=== PATIENT | female | born 1945 | race Caucasian/White ===

== ENCOUNTER 2017-08-12 10:26 | Day surgery (SDC) | payer MEDICARE, OTHER ==
[~2017-08-12] VITALS: Ht 160 cm; Wt 64.0 kg
[~2017-08-12 10:26] MED LIST: /WARF25TA OR; ACET65TA OR; ALEVE PO; CARV6.25 PO; CLARINEX PO; DESL5TAB4 PO; FLON0.05; MIGRAINE PILL PO; PERC5TAB8 OR; SAVA1TAB5 PO
[2017-08-12] MEDS ORDERED: NS 1,000 ML IV ONE (11:00)
--- NOTE | 2017-08-12 11:42 | ROOR ---
Patient Name: Chana Hare Procedure Date: 08/12/2017 11:25 AM Date of : 1945 Age: 71 Room: [facility] Gender: Female Note Status: Finalized Procedure: Upper Endoscopy + Biopsies Indications: Occult blood in stool Providers: Chad Mayberry MD Referring MD: Rajan Pedroza MD Requesting Provider: Medicines: Monitored Anesthesia Care Complications: No immediate complications. Procedure: Pre-Anesthesia Assessment: - The heart rate, respiratory rate, oxygen saturations, blood pressure, adequacy of pulmonary ventilation, and response to care were monitored throughout the procedure. The Endoscope was introduced through the mouth, and advanced to the second part of duodenum. The upper GI endoscopy was accomplished without difficulty. The patient tolerated the procedure well. Findings: The Z-line was regular and was found 35 cm from the incisors. Multiple biopsies were obtained with cold forceps for evaluation to rule out Cotter's Esophagus randomly at the gastroesophageal junction. A medium-sized hiatal hernia was present. No other significant abnormalities were identified in a careful examination of the stomach. The exam of the duodenum was otherwise normal. Impression: - Z-line regular, 35 cm from the incisors. - Medium-sized hiatal hernia. - Multiple biopsies were obtained at the gastroesophageal junction. - The examination was otherwise normal. Recommendation: - Patient has a contact number available for emergencies. The signs and symptoms of potential delayed complications were discussed with the patient. Return to normal activities tomorrow. Written discharge instructions were provided to the patient. - High fiber diet. - Discharge patient to home. - Follow an antireflux regimen. - Continue present medications. - Await pathology results. - Telephone GI clinic for pathology results in 1 week. - Check Portal Online for Path Results.([email or web address]) - The findings and recommendations were discussed with the patient's family. Chad Mayberry MD Chad Mayberry MD 08/12/2017 11:41:48 AM This report has been signed electronically. Number of Addenda: 0 Note Initiated On: 08/12/2017 11:25 AM Estimated Blood Loss: Estimated blood loss: none.
[2017-08-12] MEDS ORDERED: PROPOFOL 200 MG/20 ML VIAL As Ordered ONE (11:59)
[2017-08-12] MEDS ORDERED: LIDOCAINE 2% INJ 100 MG/5 ML SDV (FOR ANES.) As Ordered ONE (11:59)
--- NOTE | 2017-08-12 12:05 | ROOR ---
Patient Name: Chana Hare Procedure Date: 08/12/2017 11:26 AM Date of : 1945 Age: 71 Room: [facility] Gender: Female Note Status: Finalized Procedure: Total Colonoscopy to Cecum + Cold Snare Polypectomy + Hemoclip Indications: Heme positive stool Providers: Chad Mayberry MD Referring MD: Rajan Pedroza MD Requesting Provider: Medicines: Monitored Anesthesia Care Complications: No immediate complications. Procedure: Pre-Anesthesia Assessment: - The heart rate, respiratory rate, oxygen saturations, blood pressure, adequacy of pulmonary ventilation, and response to care were monitored throughout the procedure. The Colonoscope was introduced through the anus and advanced to the cecum, identified by appendiceal orifice and ileocecal valve. The colonoscopy was performed without difficulty. The patient tolerated the procedure well. The quality of the bowel preparation was excellent. Findings: The perianal and digital rectal examinations were normal. Non-bleeding internal hemorrhoids were found during retroflexion. The hemorrhoids were small and Grade I (internal hemorrhoids that do not prolapse). A small polyp was found in the rectum. The polyp was sessile. The polyp was removed with a cold snare. Resection and retrieval were complete. To prevent bleeding after the polypectomy, one hemostatic clip was successfully placed (MR conditional). There was no bleeding at the end of the procedure. A diminutive polyp was found in the cecum. The polyp was sessile. The polyp was removed with a cold snare. Resection and retrieval were complete. Multiple small and large-mouthed diverticula were found in the recto-sigmoid colon, sigmoid colon and descending colon. The exam was otherwise without abnormality on direct and retroflexion views. Impression: - Non-bleeding internal hemorrhoids. - One small polyp in the rectum, removed with a cold snare. Resected and retrieved. Clip (MR conditional) was placed. - One diminutive polyp in the cecum, removed with a cold snare. Resected and retrieved. - Diverticulosis in the recto-sigmoid colon, in the sigmoid colon and in the descending colon. - The examination was otherwise normal on direct and retroflexion views. - The exam was otherwise normal to the cecum. Recommendation: - Patient has a contact number available for emergencies. The signs and symptoms of potential delayed complications were discussed with the patient. Return to normal activities tomorrow. Written discharge instructions were provided to the patient. - High fiber diet. - Discharge patient to home. - Continue present medications. - Await pathology results. - Telephone GI clinic for pathology results in 1 week. - Repeat colonoscopy for symptoms only. - The findings and recommendations were discussed with the patient's family. Chad Mayberry MD Chad Mayberry MD 08/12/2017 12:05:20 PM This report has been signed electronically. Number of Addenda: 0 Note Initiated On: 08/12/2017 11:26 AM Estimated Blood Loss: Estimated blood loss: none.
[2017-08-12 12:20] VITALS: BP 129/62
== END 2017-08-12 12:40 | disposition home or self-care (01) ==
LOC: M OPP 10:26
PROVIDERS: ATTEND Internal Medicine Gastroenterology
DX: R19.5 Other fecal abnormalities (principal); K62.1 Rectal polyp; D12.0 Benign neoplasm of cecum; K57.30 Diverticulosis of large intestine without perforation or abscess without bleeding; K64.0 First degree hemorrhoids; K44.9 Diaphragmatic hernia without obstruction or gangrene; I48.91 Unspecified atrial fibrillation; M19.90 Unspecified osteoarthritis, unspecified site; Z86.12 Personal history of poliomyelitis; Z78.0 Asymptomatic menopausal state; R06.83 Snoring; Z96.659 Presence of unspecified artificial knee joint; Z88.0 Allergy status to penicillin; Z88.2 Allergy status to sulfonamides; Z79.899 Other long term (current) drug therapy; Z80.0 Family history of malignant neoplasm of digestive organs

== ENCOUNTER → 2019-05-06 | Outpatient (REF) | payer MEDICARE, OTHER ==
[~2019-05-06] MED LIST changes: -/WARF25TA OR; +COUM1TAB18 OR; +DESL1TAB3 PO; -DESL5TAB4 PO
[2019-05-06 11:55] LABS: BASO # 0.1 10^3/uL (0.0-0.2); BASO % 1.4 % (0.0-1.0); EOS # 0.2 10^3/uL (0.0-0.50); EOS % 5.1 % (0.0-3.0); HEMATOCRIT 37.1 % (36.0-47.0); HEMOGLOBIN 12.5 g/dl (12.0-15.5); MEAN CORPUSCULAR HEMOGLOBIN 31.6 pg (27.0-33.0); MEAN CORPUSCULAR HGB CONC 33.7 g/dl (32.0-36.5); MEAN CORPUSCULAR VOLUME 93.9 fl (80.0-96.0); MONO # 0.4 10^3/uL (0.0-0.8); MONO % 12.6 % (0.0-5.0); NEUTROPHILS # 1.9 10^3/uL (1.8-7.7); NEUTROPHILS % 52.9 % (36.0-66.0); PLATELET COUNT, AUTOMATED 227 10^3/uL (150-450); RED BLOOD COUNT 3.95 10^6/uL (4.00-5.40); WHITE BLOOD COUNT 3.5 10^3/uL (4.0-10.0)
[2019-05-06 12:26] LABS: ERYTHROCYTE SEDIMENTATION RATE 37 mm/hr (0-30)
[2019-05-06 12:33] LABS: ALBUMIN 3.6 GM/DL (3.2-5.2); ALT/SGPT 24 U/L (12-78); BILIRUBIN,TOTAL 0.6 MG/DL (0.2-1.0); BLOOD UREA NITROGEN 17 MG/DL (7-18); CARBON DIOXIDE LEVEL 32 MEQ/L (21-32); CHLORIDE LEVEL 105 MEQ/L (98-107); CREATININE FOR GFR 0.98 MG/DL (0.55-1.30); GLOMERULAR FILTRATION RATE 58.9 (>39); GLUCOSE, FASTING 92 MG/DL (70-100); POTASSIUM SERUM 4.4 MEQ/L (3.5-5.1); RHEUMATOID FACTOR QUANT < 10.0 IU/ML (<15.0); SODIUM LEVEL 141 MEQ/L (136-145); TOTAL PROTEIN 6.6 GM/DL (6.4-8.2)
[2019-05-06 12:34] LABS: TOTAL 25(OH) VITAMIN D 38.8 NG/ML (30.0-100.0)
[2019-05-07 15:17] LABS: ANTINUCLEAR ANTIBODIES DIRECT Negative (Negative)
== END ==
LOC: M LABDRAW1 09:48
PROVIDERS: ATTEND Psychiatry & Neurology Neurology
DX: R51 Headache (principal); E07.9 Disorder of thyroid, unspecified

== ENCOUNTER → 2020-07-19 | Outpatient (CLI) | payer MEDICARE, OTHER ==
[~2020-07-19] MED LIST changes: -SAVA1TAB5 PO; +SAVA1TAB6 PO
== END ==
LOC: M LABSMTC 11:02
PROVIDERS: ATTEND Family Medicine
DX: Z11.59 Encounter for screening for other viral diseases (principal)
CPT/HCPCS: C9803; U0003

== ENCOUNTER → 2020-08-30 | Outpatient (CLI) | payer SELFPAY | LOC: M LABSMTC 10:48 | PROVIDERS: ATTEND Pediatrics | DX: Z20.828 Contact with and (suspected) exposure to other viral communicable diseases (principal) ==

== ENCOUNTER → 2020-09-11 | Outpatient (CLI) | payer SELFPAY | LOC: M LABSMTC 11:30 | PROVIDERS: ATTEND Pediatrics | DX: Z20.828 Contact with and (suspected) exposure to other viral communicable diseases (principal) ==

== ENCOUNTER 2021-07-18 17:08 | Emergency (ER) | payer MEDICARE, OTHER ==
[~2021-07-18] VITALS: Ht 157.5 cm; Wt 67.2 kg
--- OUTSIDE RECORDS SUMMARY | 2021-07-18 17:19 | CCD ---
Author Author [facility] Organization [facility] Address Unknown Phone Unavailable Care Team Providers Care Member Of Technical Staff Name Role Phone Adryan, L Niurka PA Unavailable Unavailable Adryan, L Niurka PA Unavailable Unavailable Adryan, L Niurka PA Unavailable Unavailable Adryan, L Niurka PA Unavailable Unavailable Adryan, L Niurka PA Unavailable Unavailable Adryan, L Niurka PA Unavailable Unavailable Adryan, L Niurka PA Unavailable Unavailable Adryan, L Niurka PA Unavailable Unavailable Adryan, L Niurka PA Unavailable Unavailable Adryan, L Niurka PA Unavailable Unavailable Adryan, L Niurka PA Unavailable Unavailable Adryan, L Niurka PA Unavailable Unavailable Adryan, L Niurka PA Unavailable Unavailable Adryan, L Niurka PA Unavailable Unavailable Adryan, L Niurka PA Unavailable Unavailable Adryan, L Niurka PA Unavailable Unavailable Adryan, L Niurka PA Unavailable Unavailable Adryan, L Niurka PA Unavailable Unavailable Adryan, L Niurka PA Unavailable Unavailable Adryan, L Niurka PA Unavailable Unavailable Adryan, L Niurka PA Unavailable Unavailable Adryan, L Niurka PA Unavailable Unavailable Adryan, L Niurka PA Unavailable Unavailable Clark, A Phyl GLASS SCIENCE ENGINEER-BC Unavailable Unavailable Clark, A Phyl GLASS SCIENCE ENGINEER-BC Unavailable Unavailable Clark, A Phyl GLASS SCIENCE ENGINEER-BC Unavailable Unavailable Clark, A Phyl GLASS SCIENCE ENGINEER-BC Unavailable Unavailable Clark, A Phyl GLASS SCIENCE ENGINEER-BC Unavailable Unavailable Clark, A Phyl GLASS SCIENCE ENGINEER-BC Unavailable Unavailable Clark, A Phyl GLASS SCIENCE ENGINEER-BC Unavailable Unavailable Clark, A Phyl GLASS SCIENCE ENGINEER-BC Unavailable Unavailable Clark, A Phyl GLASS SCIENCE ENGINEER-BC Unavailable Unavailable Clark, A Phyl GLASS SCIENCE ENGINEER-BC Unavailable Unavailable Clark, A Phyl GLASS SCIENCE ENGINEER-BC Unavailable Unavailable Clark, A Phyl GLASS SCIENCE ENGINEER-BC Unavailable Unavailable Clark, A Phyl GLASS SCIENCE ENGINEER-BC Unavailable Unavailable Clark, A Phyl GLASS SCIENCE ENGINEER-BC Unavailable Unavailable Clark, A Phyl GLASS SCIENCE ENGINEER-BC Unavailable Unavailable Clark, A Phyl GLASS SCIENCE ENGINEER-BC Unavailable Unavailable Clark, A Phyl GLASS SCIENCE ENGINEER-BC Unavailable Unavailable Clark, A Phyl GLASS SCIENCE ENGINEER-BC Unavailable Unavailable Clark, A Phyl GLASS SCIENCE ENGINEER-BC Unavailable Unavailable Clark, A Phyl GLASS SCIENCE ENGINEER-BC Unavailable Unavailable Clark, A Phyl GLASS SCIENCE ENGINEER-BC Unavailable Unavailable Clark, A Phyl GLASS SCIENCE ENGINEER-BC Unavailable Unavailable Clark, A Phyl GLASS SCIENCE ENGINEER-BC Unavailable Unavailable Clark, A Phyl GLASS SCIENCE ENGINEER-BC Unavailable Unavailable Clark, A Phyl GLASS SCIENCE ENGINEER-BC Unavailable Unavailable Clark, A Phyl GLASS SCIENCE ENGINEER-BC Unavailable Unavailable Clark, A Phyl GLASS SCIENCE ENGINEER-BC Unavailable Unavailable Clark, A Phyl GLASS SCIENCE ENGINEER-BC Unavailable Unavailable Clark, A Phyl GLASS SCIENCE ENGINEER-BC Unavailable Unavailable Clark, A Phyl GLASS SCIENCE ENGINEER-BC Unavailable Unavailable Clark, A Phyl GLASS SCIENCE ENGINEER-BC Unavailable Unavailable Clark, A Phyl GLASS SCIENCE ENGINEER-BC Unavailable Unavailable Re-disclosure Warning The records that you are about to access may contain information from federally-assisted alcohol or drug abuse programs. If such information is present, then the following federally mandated warning applies: This information has been disclosed to you from records protected by federal confidentiality rules (42 CFR part 2). The federal rules prohibit you from making any further disclosure of this information unless further disclosure is expressly permitted by the written consent of the person to whom it pertains or as otherwise permitted by 42 CFR part 2. A general authorization for the release of medical or other information is NOT sufficient for this purpose. The Federal rules restrict any use of the information to criminally investigate or prosecute any alcohol or drug abuse patient.The records that you are about to access may contain highly sensitive health information, the redisclosure of which is protected by Article 27-F of the [place] State Public Health law. If you continue you may have access to information: Regarding HIV / AIDS; Provided by facilities licensed or operated by the [facility] Office of Mental Health; or Provided by the [facility] Office for People With Developmental Disabilities. If such information is present, then the following [facility] mandated warning applies: This information has been disclosed to you from confidential records which are protected by state law. State law prohibits you from making any further disclosure of this information without the specific written consent of the person to whom it pertains, or as otherwise permitted by law. Any unauthorized further disclosure in violation of state law may result in a fine or residential sentence or both. A general authorization for the release of medical or other information is NOT sufficient authorization for further disc losure. Family History Family Member Name Family Member Gender Family Member Status Date o f Status Description Data Source(s) Unknown Unknown Problem [facility] ([facility]) Unknown Female Problem [facility] ([facility]) AT AGE 89 Unknown Male Problem [facility] ([facility]) Encounters Encounter Providers Location Date Indications Data Source(s ) Outpatient Attender: Girish Clark [facility] Main Office 0 03/15/2021 11:00:00 AM EDT [facility] ([facility] Outpatient Attender: Niurka NEWTON Main Office 07/18/2020 09:45:0 0 AM EDT [facility] ([facility]) Immunizations Vaccine Date Status Description Data Source(s) COVID-19 VACCINE Moderna 07/15/2021 12:00:00 AM EDT completed [facility] Vaccine Series Complete: YESThis Data wa s Submitted to [facility] Via [facility]. COVID-19 VACCINE Moderna 11/02/2020 12:00:00 AM EST completed [facility] Vaccine Series Complete: YESThis Data wa s Submitted to [facility] Via [facility]. COVID-19 VACCINE, MRNA-1273, LNP-S (MODERNA)/PF 11/02/2020 1 2:00:00 AM EST completed [facility] COVID-19 VACCINE, MRNA-1273, LNP-S (MODERNA)/PF 10/05/2020 1 2:00:00 AM EST completed [facility] COVID-19 VACCINE Moderna 10/05/2020 12:00:00 AM EST completed [facility] Vaccine Series Complete: NOThis Data was Submitted to [facility] Via [facility]. INFLUENZA VACCINE QUADRIVALENT 2019- (65 YR UP)/MF59 C.1/PF 06/21/2020 12:00:00 AM EDT completed [facility] Medications Medication Brand Name Start Date Product Form Dose Route Admi nistrative Instructions Pharmacy Instructions Status Indications Reaction Description Data Source(s) 100 mcg/0.5 mL 07/15/2021 12:00:00 AM EDT suspension 0 INJECT DIRECTED PER STANDING ORDER THIRD DOSE INJECT DIRECTED PER STANDING ORDER THIRD DOSE SOLD: 07/15/2021 [facility] 5 mg 06/11/2021 12:00:00 AM EDT tablet 30 TAKE ONE TABLET BY MOUTH EVERY DAY TAKE ONE TABLET BY MOUTH EVERY DAY SOLD: 06/13/2021 [facility] 60 mg 05/18/2021 12:00:00 AM EDT tablet 30 TAKE ONE TABLET BY MOUTH EVERY DAY TAKE ONE TABLET BY MOUTH EVERY DAY SOLD: 05/27/2021 [facility] 60 mg 05/18/2021 12:00:00 AM EDT tablet 30 TAKE ONE TABLET BY MOUTH EVERY DAY TAKE ONE TABLET BY MOUTH EVERY DAY SOLD: 06/22/2021 [facility] 60 mg 04/22/2021 12:00:00 AM EDT tablet 30 TAKE ONE TABLET BY MOUTH EVERY DAY DIRECTED TAKE ONE TABLET BY MOUTH EVERY DAY DIRECTED SOLD: [facility] carvedilol 3.125 MG Oral Tablet CARVEDILOL 03/02/2021 12:00:00 AM EDT tablet 180 TAKE ONE TABLET BY MOUTH TWICE A DAY WIT H FOOD TAKE ONE TABLET BY MOUTH TWICE A DAY WITH FOOD SOLD: 06/04/2021 [facility] carvedilol 3.125 MG Oral Tablet CARVEDILOL 03/02/2021 12:00:00 AM EDT tablet 180 TAKE ONE TABLET BY MOUTH TWICE A DAY WIT H FOOD TAKE ONE TABLET BY MOUTH TWICE A DAY WITH FOOD SOLD: 03/04/2021 [facility] 300 mg 01/28/2021 12:00:00 AM EDT capsule 9 TAKE ONE CAPSULE BY MOUTH EVERY 8 HOURS UNTIL GONE TAKE ONE CAPSULE BY MOUTH EVERY 8 HOURS UNTIL GONE MALISSA [facility] 0.12 % 01/28/2021 12:00:00 AM EDT mouthwash 473 SWISH AND SPIT WITH 10ML FOUR TIMES A DAY STARTING TOMORROW SWISH AND SPIT WITH 10ML FOUR TIMES A DA Y STARTING TOMORROW SOLD: 01/28/2021 [facility] 60 mg 12/21/2020 12:00:00 AM EDT tablet 30 TAKE ONE TABLET BY MOUTH EVERY DAY DIRECTED TAKE ONE TABLET BY MOUTH EVERY DAY DIRECTED SOLD: [facility] 60 mg 12/21/2020 12:00:00 AM EDT tablet 30 TAKE ONE TABLET BY MOUTH EVERY DAY DIRECTED TAKE ONE TABLET BY MOUTH EVERY DAY DIRECTED SOLD: [facility] 60 mg 12/21/2020 12:00:00 AM EDT tablet 30 TAKE ONE TABLET BY MOUTH EVERY DAY DIRECTED TAKE ONE TABLET BY MOUTH EVERY DAY DIRECTED SOLD: [facility] 60 mg 12/21/2020 12:00:00 AM EDT tablet 30 TAKE ONE TABLET BY MOUTH EVERY DAY DIRECTED TAKE ONE TABLET BY MOUTH EVERY DAY DIRECTED SOLD: [facility] carvedilol 3.125 MG Oral Tablet CARVEDILOL 08/22/2020 12:00:00 AM EST tablet 90 TAKE ONE TABLET BY MOUTH TWICE A DAY TAKE ONE TABLET BY MOUT H TWICE A DAY SOLD: 08/29/2020 [facility] carvedilol 3.125 MG Oral Tablet CARVEDILOL 08/22/2020 12:00:00 AM EST tablet 90 TAKE ONE TABLET BY MOUTH TWICE A DAY TAKE ONE TABLET BY MOUT H TWICE A DAY SOLD: 10/09/2020 [facility] carvedilol 3.125 MG Oral Tablet CARVEDILOL 08/22/2020 12:00:00 AM EST tablet 90 TAKE ONE TABLET BY MOUTH TWICE A DAY TAKE ONE TABLET BY MOUT H TWICE A DAY SOLD: 01/11/2021 [facility] carvedilol 3.125 MG Oral Tablet CARVEDILOL 08/22/2020 12:00:00 AM EST tablet 90 TAKE ONE TABLET BY MOUTH TWICE A DAY TAKE ONE TABLET BY MOUT H TWICE A DAY SOLD: 11/24/2020 [facility] 60 mg 07/28/2020 12:00:00 AM EST tablet 30 TAKE ONE TABLET BY MOUTH ONCE DAILY DIRECTED TAKE ONE TABLET BY MOUTH ONCE DAILY DIRECTED SOLD: 08/29/2020 [facility] 60 mg 07/28/2020 12:00:00 AM EST tablet 30 TAKE ONE TABLET BY MOUTH ONCE DAILY DIRECTED TAKE ONE TABLET BY MOUTH ONCE DAILY DIRECTED SOLD: 07/30/2020 [facility] 60 mg 07/28/2020 12:00:00 AM EST tablet 30 TAKE ONE TABLET BY MOUTH ONCE DAILY DIRECTED TAKE ONE TABLET BY MOUTH ONCE DAILY DIRECTED SOLD: 11/25/2020 [facility] 60 mg 07/28/2020 12:00:00 AM EST tablet 30 TAKE ONE TABLET BY MOUTH ONCE DAILY DIRECTED TAKE ONE TABLET BY MOUTH ONCE DAILY DIRECTED SOLD: 10/25/2020 [facility] 60 mg 07/28/2020 12:00:00 AM EST tablet 30 TAKE ONE TABLET BY MOUTH ONCE DAILY DIRECTED TAKE ONE TABLET BY MOUTH ONCE DAILY DIRECTED SOLD: 09/25/2020 [facility] carvedilol 3.125 MG Oral Tablet Carvedilol 07/18/2020 12:00:00 AM EDT ORAL active [facility] ([facility]) carvedilol 6.25 MG Oral Tablet Carvedilol 07/17/2020 12:00:00 AM EDT ORAL completed [facility] ([facility]) Ketotifen 0.25 MG/ML Ophthalmic Solution [Alaway] Alaway 07/17/2020 12:00:00 AM EDT active [facility] ([facility]) 5 mg 06/07/2020 12:00:00 AM EDT tablet 30 TAKE ONE TABLET BY MOUTH EVERY DAY TAKE ONE TABLET BY MOUTH EVERY DAY SOLD: 07/13/2020 [facility] 5 mg 06/07/2020 12:00:00 AM EDT tablet 30 TAKE ONE TABLET BY MOUTH EVERY DAY TAKE ONE TABLET BY MOUTH EVERY DAY SOLD: 04/25/2021 [facility] 5 mg 06/07/2020 12:00:00 AM EDT tablet 30 TAKE ONE TABLET BY MOUTH EVERY DAY TAKE ONE TABLET BY MOUTH EVERY DAY SOLD: 02/26/2021 [facility] 5 mg 06/07/2020 12:00:00 AM EDT tablet 30 TAKE ONE TABLET BY MOUTH EVERY DAY TAKE ONE TABLET BY MOUTH EVERY DAY SOLD: 08/17/2020 [facility] 5 mg 06/07/2020 12:00:00 AM EDT tablet 30 TAKE ONE TABLET BY MOUTH EVERY DAY TAKE ONE TABLET BY MOUTH EVERY DAY SOLD: 06/11/2020 [facility] 5 mg 06/07/2020 12:00:00 AM EDT tablet 30 TAKE ONE TABLET BY MOUTH EVERY DAY TAKE ONE TABLET BY MOUTH EVERY DAY SOLD: 01/11/2021 [facility] 60 mg 01/28/2020 12:00:00 AM EDT tablet 30 TAKE ONE TABLET BY MOUTH EVERY DAY DIRECTED TAKE ONE TABLET BY MOUTH EVERY DAY DIRECTED SOLD: 020 [facility] 60 mg 01/28/2020 12:00:00 AM EDT tablet 30 TAKE ONE TABLET BY MOUTH EVERY DAY DIRECTED TAKE ONE TABLET BY MOUTH EVERY DAY DIRECTED SOLD: 020 [facility] carvedilol 3.125 MG Oral Tablet CARVEDILOL 07/18/2019 12:00:00 AM EDT tablet 180 TAKE ONE TABLET BY MOUTH TWICE A DAY TAKE ONE TA BLET BY MOUTH TWICE A DAY SOLD: 05/30/2020 [facility] Insurance Providers Payer name Policy type / Coverage type Policy ID Covered republican ID Covered republican's relationship to [place] Policy [place] Plan Information [employer] [id number] SP [id number] SELF PAY ONLY [id number] SP [id number] MEDICARE [id number] SP [id number] A MEDICARE [id number] SP [id number] A MEDICARE PART A -O/P [id number] 18 [id number] [facility] [id number] SP [id number] Medicare (Part B) Medicare Primary [id number] Self [id number] [employer] PPO O [id number] S [id number] MEDICARE C [id number] S [id number] A [employer] Medigap Part B [id number] Self [id number] Medicare Natl Gov't Servi Medicare Primary [id number] Self [id number] Medicare (Part B) Medicare Primary [id number] Self [employer] Medigap Part B [id number] Self Medicare Medicare Primary [id number] Self [employer] Medigap Part B [id number] Self [id number] [facility]/[employer] Medigap Part B [id number] Self [id number] Medicare Natl Gov't Servi Medicare Primary [id number] Self [id number] [employer] Medigap Part B [id number] Self [id number] Medicare [place] Primary [id number] Self [id number] [employer] -O/P [id number] 18 [id number] Problems, Conditions, and Diagnoses No Information Surgeries/Procedures Procedure Description Date Indications Data Source(s) OFFICE OUTPATIENT VISIT 25 MINUTES 03/15/2021 12:00:00 AM EDT [facility] ([facility]) ECG ROUTINE ECG W/LEAST 12 LDS W/I&R 07/18/2020 12:00: 00 AM EDT [facility] ([facility]) Results ID Date Data Source [id number] 09/11/2020 12:00:00 AM EST [facility] Name Value Range Interpretation Code Description Data Josette rce(s) Supporting Document(s) SARS-CoV-2 (COVID-19) RNA [Presence] in Respiratory specimen by SINDI with probe detection [facility] This lab was ordered by [facility] and reported by [employer] ID Date Data Source [id number] 08/30/2020 12:00:00 AM EST [facility] Name Value Range Interpretation Code Description Data Josette rce(s) Supporting Document(s) 2019-nCoV RNA XXX SINDI+probe-Imp [facility] This lab was ordered by [facility] and reported by [employer] ID Date Data Source [id number] 08/13/2020 08:47:00 AM EST [facility] ([facility]) Name Value Range Interpretation Code Description Data Josetet rce(s) Supporting Document(s) Laboratory test finding (navigational concept) Laboratory test result [facility] ([facility]) ID Date Data Source [id number] 08/13/2020 08:47:00 AM EST [facility] ([facility]) Name Value Range Interpretation Code Description Data Josette rce(s) Supporting Document(s) WBC 3.3 x10E3/uL 3.4-10.8 [facility] ([facility]) RBC 3.86 x10E6/uL 3.77-5.28 [facility] ([facility]) Hemoglobin [Mass/volume] in Blood 12.0 g/dL 11.1-15.9 [facility] ([facility]) Hematocrit [Volume Fraction] of Blood by Automated count 35.2 % 3 4.0-46.6 [facility] ([facility]) Erythrocyte mean corpuscular volume [Entitic volume] by Auto mated count 91 fL 79-97 [facility] ([facility]) Erythrocyte mean corpuscular hemoglobin [Entitic mass] by Automated count 31.1 pg 26.6-33.0 [facility] ([facility]) Erythrocyte mean corpuscular hemoglobin concentration [Mass/volume] by Automated count 34.1 g/dL 31.5-35.7 [facility] ([facility]) Erythrocyte distribution width [Ratio] by Automated count 13.8 % 11.7-15.4 [facility] ([facility]) Platelets [#/volume] in Blood by Automated count 215 x10E3/uL 150-450 [facility] ([facility]) Nucleated erythrocytes/100 leukocytes [Ratio] in Blood by Automated count Laboratory test result [facility] ([facility]) ID Date Data Source [id number] 08/13/2020 08:47:00 AM EST [facility] ([facility]) Name Value Range Interpretation Code Description Data Josette rce(s) Supporting Document(s) Glucose 98 mg/dL 65-99 [facility] ([facility]) Urea nitrogen [Mass/volume] in Serum or Plasma 16 mg/dL 8-27 [facility] ([facility]) eGFR If NonAfricn Am 57 mL/min/1.73 MEDE NT ([facility]) Creatinine 0.97 mg/dL 0.57-1.00 [facility] ([facility]) eGFR If Africn Am 66 mL/min/1.73 [facility] ([facility]) Urea nitrogen/Creatinine [Mass Ratio] in Serum or Plasma 16 1 2-28 [facility] ([facility]) Sodium 141 mmol/L 134-144 [facility] ([facility]) Potassium [Moles/volume] in Serum or Plasma 4.5 mmol/L 3.5-5.2 [facility] ([facility]) Chloride [Moles/volume] in Serum or Plasma 105 mmol/L 96-106 [facility] ([facility]) Carbon dioxide, total [Moles/volume] in Serum or Plasma 26 mmol/L 20 -29 [facility] ([facility]) Calcium [Mass/volume] in Serum or Plasma 9.0 mg/dL 8.7-10.3 [facility] ([facility]) ID Date Data Source [id number] 08/14/2020 06:05:00 AM EST [facility] Name Value Range Interpretation Code Description Data Josette rce(s) Supporting Document(s) WBC 3.3 x10E3/uL 3.4-10.8 Below low normal [facility] RBC 3.86 x10E6/uL 3.77-5.28 [facility] Hemoglobin 12.0 g/dL 11.1-15.9 [facility] Hematocrit 35.2 % 34.0-46.6 [facility] MCV 91 fL 79-97 [facility] MCH 31.1 pg 26.6-33.0 [facility] MCHC 34.1 g/dL 31.5-35.7 [facility] RDW 13.8 % 11.7-15.4 [facility] Platelets 215 x10E3/uL 150-450 [facility] ID Date Data Source [id number] 08/14/2020 06:05:00 AM EST [facility] Name Value Range Interpretation Code Description Data Josette rce(s) Supporting Document(s) Glucose 98 mg/dL 65-99 [facility] BUN 16 mg/dL 8-27 [facility] Creatinine 0.97 mg/dL 0.57-1.00 [facility] eGFR If NonAfricn Am 57 mL/min/1.73 >59 Below low normal [facility] eGFR If Africn Am 66 mL/min/1.73 >59 [facility] BUN/Creatinine Ratio 16 12-28 [facility] Sodium 141 mmol/L 134-144 [facility] Potassium 4.5 mmol/L 3.5-5.2 [facility] Chloride 105 mmol/L 96-106 [facility] Carbon Dioxide, Total 26 mmol/L 20-29 [facility] Calcium 9.0 mg/dL 8.7-10.3 [facility] ID Date Data Source [id number] 07/19/2020 11:10:00 AM EDT [facility] Name Value Range Interpretation Code Description Data Josette rce(s) Supporting Document(s) SARS coronavirus 2 RNA [facility] This lab was ordered by [facility] and reported by [facility]. Procedure Social History Code Duration Value Status Description Data Source(s ) Smoking 07/18/2020 12:00:00 AM EDT Patient has never smoked co mpleted Patient has never smoked [facility] ([facility]) Vital Signs ID Date Data Source UNK Name Value Range Interpretation Code Description Data Source(s) Systolic blood pressure 122 mm[Hg] 122 mm[Hg] M EDENT ([facility]) Diastolic blood pressure 76 mm[Hg] 76 mm[Hg] [facility] ([facility]) Respiratory rate 14 /min 14 /min [facility] ( [facility]) Heart rate 68 /min 68 /min [facility] ([facility]) Body weight 147.00 [lb_av] 147.00 [lb_av] MEDEN T ([facility]) Body height 62 [in_i] 62 [in_i] [facility] ([facility]) 5'2" Body mass index (BMI) [Ratio] 26.9 kg/m2 26.9 k g/m2 [facility] ([facility]) Heart rate 71 /min 71 /min [facility] ([facility]) Systolic blood pressure--sitting 96 mm[Hg] 96 mm[Hg] [facility] ([facility]) large cuff, Ra Diastolic blood pressure--sitting 52 mm[Hg] 52 mm[Hg] [facility] ([facility]) large cuff, Ra
[2021-07-18 22:04] LABS: BASO % 0.9 % (0.0-1.0); EOS # 0.2 10^3/uL (0.0-0.5); EOS % 6.3 % (0.0-3.0); HEMATOCRIT 36.8 % (36.0-47.0); HEMOGLOBIN 12.4 g/dl (12.0-15.5); MEAN CORPUSCULAR HEMOGLOBIN 30.5 pg (27.0-33.0); MEAN CORPUSCULAR HGB CONC 33.7 g/dl (32.0-36.5); MEAN CORPUSCULAR VOLUME 90.6 fl (80.0-96.0); MONO # 0.6 10^3/uL (0.0-0.8); MONO % 15.9 % (2.0-8.0); NEUTROPHILS # 1.7 10^3/uL (1.5-8.5); NEUTROPHILS % 48.9 % (36.0-66.0); PLATELET COUNT, AUTOMATED 208 10^3/uL (150-450); RED BLOOD COUNT 4.06 10^6/uL (4.00-5.40); WHITE BLOOD COUNT 3.5 10^3/uL (4.0-10.0)
[2021-07-18 22:14] LABS: INR 1.28; PROTHROMBIN TIME 16.4 SECONDS (12.7-14.5)
[2021-07-18 22:15] LABS: PARTIAL THROMBOPLASTIN TIME 32.4 SECONDS (25.9-37.0)
[2021-07-18 22:30] LABS: ALBUMIN 3.6 GM/DL (3.2-5.2); BILIRUBIN,TOTAL 0.6 MG/DL (0.2-1.0); CALCIUM LEVEL 9.4 MG/DL (8.8-10.2); CREATININE FOR GFR 1.15 MG/DL (0.55-1.30); GLOMERULAR FILTRATION RATE 48.7 (>39); POTASSIUM SERUM 3.7 MEQ/L (3.5-5.1); TOTAL PROTEIN 7.1 GM/DL (6.4-8.2)
[2021-07-18 23:05] VITALS: BP 149/75
== END 2021-07-18 23:06 | disposition home or self-care (01) ==
LOC: M ED 17:08
DX: S60.221A Contusion of right hand, initial encounter (principal); X58.XXXA Exposure to other specified factors, initial encounter; Y92.89 Other specified places as the place of occurrence of the external cause; I48.91 Unspecified atrial fibrillation; Z79.899 Other long term (current) drug therapy; Z88.0 Allergy status to penicillin; Z88.1 Allergy status to other antibiotic agents; Z88.2 Allergy status to sulfonamides

== ENCOUNTER → 2022-10-21 | Outpatient (CLI) | payer MEDICARE, OTHER | LOC: M WHC 14:53 | PROVIDERS: ATTEND Family Medicine | DX: Z12.31 Encounter for screening mammogram for malignant neoplasm of breast (principal) ==

== ENCOUNTER → 2022-10-24 | Outpatient (CLI) | payer MEDICARE, OTHER ==
[2022-10-24 08:28] LABS: BASO # 0.1 10^3/uL (0.0-0.2); BASO % 1.9 % (0.0-1.0); EOS # 0.2 10^3/uL (0.0-0.5); EOS % 6.6 % (0.0-3.0); HEMATOCRIT 37.4 % (36.0-47.0); HEMOGLOBIN 12.3 g/dl (12.0-15.5); LYMPH % 27.3 % (24.0-44.0); MEAN CORPUSCULAR HEMOGLOBIN 30.3 pg (27.0-33.0); MEAN CORPUSCULAR HGB CONC 32.9 g/dl (32.0-36.5); MEAN CORPUSCULAR VOLUME 92.1 fl (80.0-96.0); MONO # 0.5 10^3/uL (0.0-0.8); MONO % 14.6 % (2.0-8.0); NEUTROPHILS # 1.8 10^3/uL (1.5-8.5); NEUTROPHILS % 49.6 % (36.0-66.0); PLATELET COUNT, AUTOMATED 210 10^3/uL (150-450); RED BLOOD COUNT 4.06 10^6/uL (4.00-5.40); WHITE BLOOD COUNT 3.6 10^3/uL (4.0-10.0)
[2022-10-24 09:00] LABS: ALBUMIN 3.4 G/DL (3.2-5.2); BILIRUBIN,TOTAL 0.7 MG/DL (0.3-1.2); CALCIUM LEVEL 8.4 MG/DL (8.3-10.6); CHOLESTEROL RISK RATIO 3.15 (<5); CREATININE FOR GFR 1.04 MG/DL (0.55-1.30); GLOMERULAR FILTRATION RATE 54.6 (>39); HDL CHOLESTEROL 58.4 MG/DL (>40); LDL CHOLESTEROL 106.2 MG/DL (<100); POTASSIUM SERUM 4.3 MMOL/L (3.5-5.1); TOTAL PROTEIN 6.3 G/DL (5.7-8.2)
== END ==
LOC: M LAB 07:58
PROVIDERS: ATTEND Family Medicine
DX: Z00.00 Encounter for general adult medical examination without abnormal findings (principal); Z79.899 Other long term (current) drug therapy

== ENCOUNTER → 2024-03-03 | Outpatient (CLI) | payer MEDICARE, OTHER ==
[2024-03-03 11:46] LABS: BASO # 0.1 10^3/uL (0.0-0.2); BASO % 2.3 % (0.0-1.0); EOS # 0.1 10^3/uL (0.0-0.5); EOS % 4.6 % (0.0-3.0); HEMATOCRIT 34.8 % (36.0-47.0); HEMOGLOBIN 11.9 g/dl (12.0-15.5); LYMPH # 1.1 10^3/uL (1.5-5.0); LYMPH % 35.9 % (24.0-44.0); MEAN CORPUSCULAR HEMOGLOBIN 31.2 pg (27.0-33.0); MEAN CORPUSCULAR HGB CONC 34.2 g/dl (32.0-36.5); MEAN CORPUSCULAR VOLUME 91.3 fl (80.0-96.0); MONO # 0.5 10^3/uL (0.0-0.8); MONO % 15.1 % (2.0-8.0); NEUTROPHILS # 1.3 10^3/uL (1.5-8.5); NEUTROPHILS % 42.1 % (36.0-66.0); PLATELET COUNT, AUTOMATED 221 10^3/uL (150-450); RED BLOOD COUNT 3.81 10^6/uL (4.00-5.40)
[2024-03-03 12:11] LABS: ALBUMIN 3.4 G/DL (3.2-5.2); ALKALINE PHOSPHATASE 48 U/L (46-116); ALT/SGPT 26 U/L (7.0-40); AST/SGOT 21 U/L (<34); BILIRUBIN,TOTAL 0.7 MG/DL (0.3-1.2); BLOOD UREA NITROGEN 16 MG/DL (9-23); CALCIUM LEVEL 9.1 MG/DL (8.3-10.6); CARBON DIOXIDE LEVEL 29 MMOL/L (20-31); CHLORIDE LEVEL 108 MMOL/L (98-107); CHOLESTEROL LEVEL 179 MG/DL (<200); CREATININE FOR GFR 0.96 MG/DL (0.55-1.30); GLOMERULAR FILTRATION RATE > 60.0 (>32); GLUCOSE, FASTING 90 MG/DL (74-106); HDL CHOLESTEROL 55.9 MG/DL (>40); LDL CHOLESTEROL 102.7 MG/DL (<100); MAGNESIUM LEVEL 1.9 MG/DL (1.8-2.4); POTASSIUM SERUM 4.7 MMOL/L (3.5-5.1); SODIUM LEVEL 139 MMOL/L (136-145); TOTAL PROTEIN 6.3 G/DL (5.7-8.2); TRIGLYCERIDES LEVEL 102 MG/DL (<150)
== END ==
LOC: M LAB 10:30
PROVIDERS: ATTEND Internal Medicine Cardiovascular Disease
DX: E78.2 Mixed hyperlipidemia (principal); I48.0 Paroxysmal atrial fibrillation; I50.9 Heart failure, unspecified; R06.02 Shortness of breath; Z13.29 Encounter for screening for other suspected endocrine disorder; Z13.1 Encounter for screening for diabetes mellitus

== ENCOUNTER → 2024-05-20 | Outpatient (CLI) | payer MEDICARE, OTHER ==
[2024-05-20 11:27] LABS: BASO # 0.1 10^3/uL (0.0-0.2); BASO % 1.4 % (0.0-1.0); EOS # 0.3 10^3/uL (0.0-0.5); EOS % 7.4 % (0.0-3.0); HEMATOCRIT 37.2 % (36.0-47.0); HEMOGLOBIN 12.7 g/dl (12.0-15.5); LYMPH # 0.9 10^3/uL (1.5-5.0); LYMPH % 24.5 % (24.0-44.0); MEAN CORPUSCULAR HEMOGLOBIN 31.1 pg (27.0-33.0); MEAN CORPUSCULAR HGB CONC 34.1 g/dl (32.0-36.5); MEAN CORPUSCULAR VOLUME 91.2 fl (80.0-96.0); MONO # 0.5 10^3/uL (0.0-0.8); MONO % 13.2 % (2.0-8.0); NEUTROPHILS # 1.9 10^3/uL (1.5-8.5); NEUTROPHILS % 53.2 % (36.0-66.0); PLATELET COUNT, AUTOMATED 246 10^3/uL (150-450); RED BLOOD COUNT 4.08 10^6/uL (4.00-5.40); WHITE BLOOD COUNT 3.6 10^3/uL (4.0-10.0)
[2024-05-20 12:09] LABS: CREATININE FOR GFR 1.07 MG/DL (0.55-1.30); GLOMERULAR FILTRATION RATE 52.5 (>32)
== END ==
LOC: M LAB 10:54
PROVIDERS: ATTEND Internal Medicine Cardiovascular Disease
DX: I48.0 Paroxysmal atrial fibrillation (principal); I11.9 Hypertensive heart disease without heart failure; I50.9 Heart failure, unspecified

== ENCOUNTER → 2024-07-28 | Outpatient (CLI) | payer MEDICARE, OTHER ==
[2024-07-28 12:59] LABS: ALBUMIN 3.4 G/DL (3.2-5.2); BILIRUBIN,TOTAL 0.7 MG/DL (0.3-1.2); CALCIUM LEVEL 9.1 MG/DL (8.3-10.6); CREATININE FOR GFR 1.16 MG/DL (0.55-1.30); GLOMERULAR FILTRATION RATE 47.9 (>32); POTASSIUM SERUM 3.8 MMOL/L (3.5-5.1); TOTAL PROTEIN 6.5 G/DL (5.7-8.2)
== END ==
LOC: M LAB 11:20
PROVIDERS: ATTEND Internal Medicine Cardiovascular Disease
DX: I48.0 Paroxysmal atrial fibrillation (principal); I11.9 Hypertensive heart disease without heart failure; I50.9 Heart failure, unspecified

== ENCOUNTER → 2024-09-12 | Outpatient (CLI) | payer MEDICARE, OTHER | LOC: M SLEEP 20:00 | PROVIDERS: ATTEND Nurse Practitioner Adult Health | DX: G47.33 Obstructive sleep apnea (adult) (pediatric) (principal) ==

== ENCOUNTER → 2024-11-08 | Outpatient (CLI) | payer MEDICARE, OTHER | LOC: M WHC 12:15 | PROVIDERS: ATTEND Family Medicine | DX: Z13.820 Encounter for screening for osteoporosis (principal); Z12.31 Encounter for screening mammogram for malignant neoplasm of breast; M85.89 Other specified disorders of bone density and structure, multiple sites ==

== ENCOUNTER → 2024-11-30 | Outpatient (CLI) | payer MEDICARE, OTHER ==
[~2024-11-30] MED LIST changes: +AMOX875T2 PO; +BUME0.5T2; +CARV3.12; +JARD1TAB
== END ==
LOC: M SLEEP 20:00
PROVIDERS: ATTEND Nurse Practitioner Adult Health
DX: G47.33 Obstructive sleep apnea (adult) (pediatric) (principal)

== ENCOUNTER 2024-12-13 14:48 | Emergency (ER) | payer MEDICARE, OTHER ==
[~2024-12-13] VITALS: Ht 154.9 cm; Wt 63.5 kg
[~2024-12-13 14:48] MED LIST changes: -AMOX875T2 PO; -BUME0.5T2; -CARV3.12; -JARD1TAB
[2024-12-13] MEDS ORDERED: JARD1TAB (15:08)
[2024-12-13] MEDS ORDERED: BUME0.5T2 (15:08)
[2024-12-13] MEDS ORDERED: CARV3.12 (15:08)
[2024-12-13] MEDS: POLYSPORIN TOPICAL OINTMENT 15GM TOP ONE (17:05)
[2024-12-13 17:09] VITALS: BP 118/68; TEMP 97.1; O2SAT 100
[2024-12-13] MEDS ORDERED: AMOX875T2 PO (18:42)
== END 2024-12-13 18:54 | disposition home or self-care (01) ==
LOC: M ED 14:48
DX: S61.411A Laceration without foreign body of right hand, initial encounter (principal); W54.0XXA Bitten by dog, initial encounter; Y92.410 Unspecified street and highway as the place of occurrence of the external cause; Y93.89 Activity, other specified; Y99.9 Unspecified external cause status; Z88.1 Allergy status to other antibiotic agents; Z88.2 Allergy status to sulfonamides; Z79.2 Long term (current) use of antibiotics; Z79.899 Other long term (current) drug therapy